=== PATIENT | female | born 1970 | race Caucasian/White ===

== ENCOUNTER 2021-03-20 20:34 | Emergency (ER) | payer SELFPAY ==
[~2021-03-20] VITALS: Ht 154.9 cm; Wt 77.3 kg
[2021-03-20] MEDS ORDERED: DOXY100C PO (21:00)
[2021-03-20] MEDS ORDERED: PRED20TA PO (21:00)
[2021-03-20] MEDS ORDERED: ALBU83IN NEB (21:00)
[2021-03-20] MEDS ORDERED: BENZ-18 PO (21:00)
[2021-03-20] MEDS ORDERED: FLUT1INH3 INH (21:00)
[2021-03-20 22:22] LABS: BASO % 0.2 % (0.0-1.0); HEMATOCRIT 41.8 % (36.0-47.0); HEMOGLOBIN 13.8 g/dl (12.0-15.5); LYMPH # 0.9 10^3/uL (1.5-5.0); MEAN CORPUSCULAR VOLUME 90.9 fl (80.0-96.0); MONO # 0.2 10^3/uL (0.0-0.8); MONO % 4.7 % (2.0-8.0); NEUTROPHILS # 3.9 10^3/uL (1.5-8.5); NEUTROPHILS % 76.9 % (36.0-66.0); WHITE BLOOD COUNT 5.1 10^3/uL (4.0-10.0)
[2021-03-20 22:44] LABS: ALBUMIN 3.5 GM/DL (3.2-5.2); ALT/SGPT 33 U/L (12-78); BILIRUBIN,DIRECT < 0.1 MG/DL (0.0-0.2); BILIRUBIN,TOTAL 0.4 MG/DL (0.2-1.0); BLOOD UREA NITROGEN 14 MG/DL (7-18); CALCIUM LEVEL 8.4 MG/DL (8.5-10.1); CARBON DIOXIDE LEVEL 22 MEQ/L (21-32); CHLORIDE LEVEL 99 MEQ/L (98-107); CK-MB VALUE MASS < 1.0 NG/ML (<3.6); CPK CREATINE PHOSPHOKINASE 196 U/L (26-192); CREATININE FOR GFR 0.78 MG/DL (0.55-1.30); GLOMERULAR FILTRATION RATE > 60.0 (>58); GLUCOSE, FASTING 87 MG/DL (70-100); MB/CK RELATIVE INDEX 0.51 (< OR =4); NT-PRO BNP 18 PG/ML (<125); POTASSIUM SERUM 4.5 MEQ/L (3.5-5.1); SODIUM LEVEL 134 MEQ/L (136-145); THYROID STIMULATING HORMONE 0.351 uIU/ML (0.358-3.740); TOTAL PROTEIN 7.1 GM/DL (6.4-8.2); TROPONIN I < 0.02 NG/ML (< 0.10)
--- NOTE | 2021-03-21 00:01 | REPVR ---
PROCEDURE INFORMATION: Exam: XR Chest Exam date and time: 03/20/2021 10:35 PM Age: 50 years old Clinical indication: Cough and dyspnea TECHNIQUE: Imaging protocol: XR of the chest. Views: 1 view. COMPARISON: No relevant prior studies available. FINDINGS: Lungs: There are subtle peripheral airspace opacities in the mid lung zones bilaterally. Pleural spaces: Unremarkable. No pleural effusion. No pneumothorax. Heart/Mediastinum: Unremarkable. No cardiomegaly. Bones/joints: There is mild levoscoliosis of the lower thoracic spine. Intraperitoneal space: There are surgical clips in the right upper quadrant of the abdomen. IMPRESSION: Subtle peripheral airspace opacities in the mid lung zones bilaterally, which may represent pneumonia. Electronically signed by: Tawanda Howard On 03/21/2021 00:00:37 AM
[2021-03-21 01:00] VITALS: BP 130/84
--- NOTE | 2021-03-21 06:06 | ECGEPIP ---
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
== END 2021-03-21 01:23 | disposition home or self-care (01) ==
LOC: M ED 20:34
DX: U07.1 COVID-19 (principal); J45.909 Unspecified asthma, uncomplicated; Z91.040 Latex allergy status; Z79.51 Long term (current) use of inhaled steroids; Z79.899 Other long term (current) drug therapy; Z88.8 Allergy status to other drugs, medicaments and biological substances

== ENCOUNTER 2021-03-21 00:18 | Outpatient (CLI) | payer SELFPAY ==
[~2021-03-21] VITALS: Ht 154.9 cm; Wt 76.5 kg
[~2021-03-21 00:18] MED LIST: ALBU83IN NEB; BENZ-18 PO; DOXY100C PO; FLUT1INH3 INH; PRED20TA PO
--- NOTE | 2021-03-21 00:19 | HPEPDOC ---
[facility] Medical History & Physical Date of Admission March 21, 2021 Date of Service: March 21, 2021 Attending Physician: CRISPIN OQUENDO MD History and Physical TTIME OF SERVICE: 1234am CHIEF COMPLAINT: dyspnea HISTORY OF PRESENT ILLNESS: This 50 yr old F presented w c/o dyspnea, cough, hea dache, and weakness for 1 week despite being started on doxycycline and presnidonse; she had previously tested neg for COVID but today repeat testing was positive. She denies feeling like her asthma is acting up. REVIEW OF SYSTEMS: 12-point review of systems negative except as listed in HPI PAST MEDICAL/ SURGICAL HISTORY: Asthma, Class 1 Obesity, Cholecystectomy, R knee repair ALLERGIES: Please see below. HOME MEDICATIONS: Please see below. PHYSICAL EXAMINATION: T 97.6 / HR 79 / RR 16 / BP 129/85/ O2 94% GENERAL APPEARANCE: well nourished / listless HEENT: EOMI CARDIOVASCULAR: RRR, NMRG LUNGS: CTAB on RA INTEGUMENT: not flushed or diaphoretic NEUROLOGICAL: speech not dysarthric PSYCHIATRIC: A&Ox 3 / able to understand and follow all commands LABORATORY DATA: CBC & CMP unremarkable except Na of 134, AST of 51, CK of 196, TSH of 0.351 IMAGING: Chest xray IMPRESSION: Subtle peripheral airspace opacities in the mid lung zones bilaterally, which may represent pneumonia. MICROBIOLOGY: COVID 19 + ASSESSMENT: is a 50 yr old F w Asthma & Class 1 Obesity who presented w c/o dyspnea, cough, headache, and weakness for 1 week and will receive MAB infusion for COVID 19., PLAN: 1 COVID 19 qCSI score is = 0 points = low risk Low Na and elevated AST are likely due to COVID Plan: MAB infusion order set 2 Low TSH likely 2/2 euthyroid sick syndrome Plan: f/u w PCP for repeat TFTs Dispo: home after infusion Home Medications Scheduled Doxycycline Hyclate (Doxycycline Hyclate) 100 Mg Capsule, 1 CAP PO BID Fluticasone Propion/Salmeterol (Fluticasone-Salmeterol 232-14) 1 Each Aer.pow.ba, 1 PUFF INH BID Prednisone (Prednisone) 20 Mg Tablet, 1 TAB PO DAILY Scheduled PRN Albuterol Sulf (Albuterol Sulfate) 2.5 Mg/3 Ml Vial.neb, 1 NEB NEB PRN PRN for DYSPNEA Benzonatate (Benzonatate) 100 Mg Capsule, 1 CAP PO PRN PRN for COUGH Allergies Coded Allergies: ceftriaxone (Verified Allergy, Severe, anaphylaxis., 03/20/21) anaphylaxis. Latex, Natural Rubber (Verified Allergy, Mild, skin peel off, 03/20/21) skin peel off A-FIB/CHADSVASC A-FIB History Current/History of A-Fib/PAF?: No Current PO Anticoag Therapy: No CRISPIN OQUENDO MD March 21, 2021 00:19
[2021-03-21] MEDS ORDERED: EPINEPHrine INJ 1 MG/ML 1ML AMP IM PRN (00:20)
[2021-03-21] MEDS ORDERED: ALBUTEROL SULFATE 2.5 MG/0.5 ML INH NEB SOLN INH PRN (00:20)
[2021-03-21] MEDS ORDERED: ALBUTEROL 90 MCG/ACT 8GM HFA INHALER INH PRN (00:20)
[2021-03-21] MEDS ORDERED: methylPREDNISolone 125MG 2ML VIAL IV PRN (00:20)
[2021-03-21] MEDS ORDERED: diphenhydrAMINE 50MG/ML VIAL (J1200) IV PRN (00:20)
[2021-03-21] MEDS ORDERED: NS 1,000 ML IV SCH (00:20)
[2021-03-21 01:25] VITALS: BP 113/77
[2021-03-21] MEDS ORDERED: BAMLANIVIMAB 700 MG, ETESEVIMAB 1,400 MG in NS 250 ML IV ONE (02:15)
[2021-03-21 03:07] VITALS: BP 120/74
[2021-03-21 03:30] VITALS: BP 117/69
[2021-03-21 04:00] VITALS: BP 123/81
[2021-03-21] MEDS ORDERED: methylPREDNISolone 125MG 2ML VIAL IV ONE (04:30)
[2021-03-21] MEDS ORDERED: ALBUTEROL 90 MCG/ACT 8GM HFA INHALER INH ONE (04:30)
[2021-03-21 05:07] VITALS: BP 115/74
== END 2021-03-21 05:50 | disposition home or self-care (01) ==
LOC: M OPCLI4 00:18 → M 4MAIN 01:25 → M OPCLI4 05:50
PROVIDERS: ATTEND Internal Medicine
DX: U07.1 COVID-19 (principal); Z91.040 Latex allergy status
CPT/HCPCS: 96375; J2930; M0239

== ENCOUNTER 2021-03-26 13:11 | Inpatient (IN) | payer SELFPAY ==
[~2021-03-26] VITALS: Ht 165.1 cm; Wt 96.9 kg
[2021-03-26 14:29] LABS: BASO % 0.1 % (0.0-1.0); EOS % 0.1 % (0.0-3.0); HEMATOCRIT 41.4 % (36.0-47.0); HEMOGLOBIN 13.7 g/dl (12.0-15.5); LYMPH # 0.7 10^3/uL (1.5-5.0); LYMPH % 5.4 % (24.0-44.0); MEAN CORPUSCULAR HEMOGLOBIN 30.2 pg (27.0-33.0); MEAN CORPUSCULAR HGB CONC 33.1 g/dl (32.0-36.5); MEAN CORPUSCULAR VOLUME 91.2 fl (80.0-96.0); MONO # 0.7 10^3/uL (0.0-0.8); MONO % 5.4 % (2.0-8.0); NEUTROPHILS # 10.9 10^3/uL (1.5-8.5); NEUTROPHILS % 88.2 % (36.0-66.0); PLATELET COUNT, AUTOMATED 341 10^3/uL (150-450); RED BLOOD COUNT 4.54 10^6/uL (4.00-5.40); WHITE BLOOD COUNT 12.4 10^3/uL (4.0-10.0)
[2021-03-26 14:40] LABS: INR 1.01; PROTHROMBIN TIME 13.5 SECONDS (12.5-14.3)
[2021-03-26 14:41] LABS: PARTIAL THROMBOPLASTIN TIME 24.6 SECONDS (24.2-38.5)
[2021-03-26 14:51] LABS: ALBUMIN 2.9 GM/DL (3.2-5.2); ALT/SGPT 30 U/L (12-78); BILIRUBIN,TOTAL 0.5 MG/DL (0.2-1.0); BLOOD UREA NITROGEN 17 MG/DL (7-18); C REACTIVE PROTEIN QUANTITATIV 4.95 MG/DL (0.00-0.30); CALCIUM LEVEL 8.7 MG/DL (8.5-10.1); CARBON DIOXIDE LEVEL 24 MEQ/L (21-32); CHLORIDE LEVEL 104 MEQ/L (98-107); CREATININE FOR GFR 0.75 MG/DL (0.55-1.30); FERRITIN 349 NG/ML (8-252); GLOMERULAR FILTRATION RATE > 60.0 (>58); GLUCOSE, FASTING 153 MG/DL (70-100); LDH LACTATE DEHYDROGENASE 480 U/L (84-246); POTASSIUM SERUM 4.9 MEQ/L (3.5-5.1); SODIUM LEVEL 135 MEQ/L (136-145); TOTAL PROTEIN 7.1 GM/DL (6.4-8.2)
[2021-03-26 14:53] LABS: HCG, SERUM QUALITATIVE NEGATIVE (NEGATIVE)
[2021-03-26 14:55] LABS: ERYTHROCYTE SEDIMENTATION RATE 58 mm/hr (0-20)
--- NOTE | 2021-03-26 15:33 | REP ---
INDICATION: covid. COMPARISON: Comparison chest x-ray March 20, 2021. TECHNIQUE: Portable upright AP chest radiograph. FINDINGS: A subtle infiltrate is again noted in the right upper lobe above the minor fissure. There is an infiltrate in the right lower lobe which has increased since the prior study. There is also increased density in the left lower lobe which is more prominent than on the March 20, 2021 study as well.. Heart is not enlarged. Pleural angles are sharp. No bony abnormality. IMPRESSION: Radiographically progressive bilateral patchy pneumonia.. <Electronically signed by Srikanth Diane > 03/26/21 [id number]
[2021-03-26] MEDS ORDERED: ISOVUE-370 76% 100ML VIAL As Ordered ONE (15:43)
--- NOTE | 2021-03-26 16:09 | REP ---
INDICATION: covid pneumonia, possible pulmonary embolism. COMPARISON: Comparison is made with today's chest x-ray.. TECHNIQUE: Contrast dose: 75 ML of Isovue [address] technique: Helical scanning is acquired and overlapping 1.5 mm and contiguous 3 mm axial images are reformatted. In addition, maximum intensity projection and multiplanar re-formation images are generated in sagittal and coronal imaging projections. FINDINGS: There is good opacification in the pulmonary arterial tree. There is no evidence of vessel cut off or filling defect to suggest pulmonary embolus. Homogeneous opacity is seen in the thoracic aorta. There is no evidence of aneurysm or dissection. Lung window settings demonstrate large areas of ground-glass alveolar infiltrates in the upper lobes and lower lobes. Much of each lower lobe is involved. Findings consistent with extensive patchy bilateral pneumonia. No pleural or pericardial effusion is seen. No hilar or mediastinal mass or adenopathy is observed. No extra thoracic mass or adenopathy is seen. In the upper abdomen, normal adrenal glands are observed. Post cholecystectomy clips are seen in the right upper quadrant. IMPRESSION: Extensive bilateral alveolar infiltrates consistent with bilateral pneumonia. No CT evidence of pulmonary embolus.. <Electronically signed by Srikanth Diane > 03/26/21 [id number]
[2021-03-26] MEDS ORDERED: MOXIFLOXACIN HCL 400 MG in IV 1 EA IV ONE (17:05)
[2021-03-26] MEDS ORDERED: dexameTHASONE 20MG/5ML VIAL (J1100 PER 1MG) IV ONE (17:05)
[2021-03-26] MEDS ORDERED: NS 1,000 ML IV SCH (17:40)
[2021-03-26 17:41] LABS: D-DIMER QUANT 371.15 ng/ml (<500)
--- NOTE | 2021-03-26 17:41 | HPEPDOC ---
[facility] Medical History & Physical Date of Admission March 26, 2021 Date of Service: March 26, 2021 History and Physical Chief complaint: Presented to the ER with complaints of SOB History of present illness: Patient is a 51 year old female with a PMHx of Asthma, COVID19 (Dx 03/20; s/p Monoclonal antibodies) who presented to the emergency room with complaints of shortness of breath. Patient has reported that prior to 03/20. Infusion of monoclonal antibodies. She has been experiencing a one week history of symptoms which she describes as shortness of breath, nonproductive cough, headache and weakness. Patient had seen her primary care provider who prescribed her prednisone and doxycycline. Despite that she had presented to the emergency room on the 03/20 and was given a monoclonal antibody infusion. After the infusion. Patient reported that she felt relatively well, however, has continued to experience nonproductive cough, shortness of breath, some expectoration was noted. Unable to describe sputum report some nausea without vomiting. Denies any abdominal pain, constipation. Reports her diarrhea has resolved. Her last bowel movement was today and reported normal. Patient reports that she is able to eat and denies any changes in her weight. She does report low-grade fevers at home of 99.9 and some chills. 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 Review of Systems: 10 point review of systems complete, all negative otherwise stated in HPI Physical exam: - Vitals: BP [121/69], HR [81], RR [18], Sat [94%NC2L], Temp [98.5F] - General: Lying in bed, No acute distress, Speaking in full sentences, AAOx3 - HEENT: NC, AT, PERRLA - CVS: RRR, +S1S2, - Murmurs / rubs / gallops - Lungs: Fair air entry bilaterally, No appreciable wheezing / rales / rhonchi - Abdomen: Soft, Non-distended, Non-tender - Extremities: No lower extremity edema, No calf tenderness - Neuro: No focal motor or sensory deficit - Skin: No visible rashes Labs: See below Imaging: CXR 03/26: Radiographically progressive bilateral patchy pneumonia. CTA chest 03/26: Extensive bilateral alveolar infiltrates consistent with bilateral pneumonia. No CT evidence of pulmonary embolus. EKG: See below Assessment and Plan: Acute hypoxic respiratory failure - likely 2/2 COVID19 pneumonia; possibly 2/2 superimposed bacterial infection - Patient presented to emergency room with complaint of shortness of breath - Upon arrival to ER, patient was on RA; however currently is on nasal cannula 2 L, maintaining saturations at 94% - Was recently diagnosed with COVID19 infection on 03/20 and has received monoc lonal antibodies - Has been reporting symptoms since 03/13; reported to have tested negative on that date - Residual emergency room with complaints of shortness of breath, nonproductive cough, low-grade fevers and chills - Leukocytosis, some elevation of inflammatory markers - Imaging noted above - Will check sputum cultures, blood cultures, pro-calcitonin and trend inflammatory markers - Will start Remdesivir / Dexamethasone / Antibiotics with Moxifloxacin (until procalcitonin results) - Continue with supplemental oxygen to maintain saturations greater than 90% - Will start Incentive spirometry / Acapella / Mucinex Leukocytosis - Neutrophil prominence - Patient has reported that she has continued to use of prednisone while outpatient - Will continue with antibiotics as stated above Lactic acidosis - Will start gentle IV fluid hydration Chronic Asthma - No evidence of exacerbation - c/w Inhaled therapy as ordered DVT prophylaxis - Will start Lovenox Vital Signs Vital Signs Date Time Temp Pulse Resp B/P (MAP) Pulse Ox O2 Delivery O2 Flow Rate FiO2 03/26/21 16:11 81 92 03/26/21 16:00 121/69 (86) 03/26/21 13:11 98.5 18 Room Air Laboratory Data Labs 24H Laboratory Tests 2 03/26/21 14:18: Procalcitonin <0.05 03/26/21 14:19: Immature Granulocyte % (Auto) 0.8, Neutrophils (%) (Auto) 88.2H, Lymphocytes (%) (Auto) 5.4L, Monocytes (%) (Auto) 5.4, Eosinophils (%) (Auto) 0.1, Basophils (%) (Auto) 0.1, Neutrophils # (Auto) 10.9H, Lymphocytes # (Auto) 0.7L, Monocytes # (Auto) 0.7, Eosinophils # (Auto) 0.0, Basophils # (Auto) 0.0, Nucleated Red Blood Cells % (auto) 0.0, Erythrocyte Sedimentation Rate 58H, Prothrombin Time 13.5, Prothromb Time International Ratio 1.01, Activated Partial Thromboplast Time 24.6L, Fibrinogen 572H, Anion Gap 7L, Glomerular Filtration Rate > 60.0, Calcium Level 8.7, Ferritin 349H, Total Bilirubin 0.5, Aspartate Amino Transf (AST/SGOT) 30, Alanine Aminotransferase (ALT/SGPT) 30, Alkaline Phosphatase 89, Lactate Dehydrogenase 480H, C-Reactive Protein, Quantitative 4.95H, Total Protein 7.1, Albumin 2.9L, Albumin/Globulin Ratio 0.7L, Human Chorionic Gonadotropin, Qual NEGATIVE 03/26/21 14:25: POC Lactate (Misc Panel) 2.23*H CBC/BMP Laboratory Tests 03/26/21 14:19 Home Medications Scheduled Doxycycline Hyclate (Doxycycline Hyclate) 100 Mg Capsule, 100 MG PO BID Fluticasone Propion/Salmeterol (Fluticasone-Salmeterol 232-14) 1 Each Aer.pow.ba, 1 PUFF INH BID Prednisone (Prednisone) 20 Mg Tablet, 20 MG PO DAILY Scheduled PRN Albuterol Sulf (Albuterol Sulfate) 2.5 Mg/3 Ml Vial.neb, 1 VIAL NEB Q4H PRN for SOB/WHEEZING Benzonatate (Benzonatate) 100 Mg Capsule, 200 MG PO TID PRN for COUGH Allergies Coded Allergies: ceftriaxone (Verified Allergy, Severe, anaphylaxis., 03/20/21) anaphylaxis. Latex, Natural Rubber (Verified Allergy, Mild, skin peel off, 03/20/21) skin peel off KI GANDHI MD March 26, 2021 17:41
[2021-03-26] MEDS ORDERED: ALBUTEROL 90 MCG/ACT 8GM HFA INHALER INH PRN (17:45)
[2021-03-26] MEDS ORDERED: BENZONATATE 100 MG CAP PO PRN (17:45)
[2021-03-26 17:53] LABS: MAGNESIUM LEVEL 1.8 MG/DL (1.8-2.4)
[2021-03-26] MEDS: ADVAIR HFA 230/21MCG INHALER INH SCH (20:00)
[2021-03-26] MEDS ORDERED: REMDESIVIR 200 MG in NS 250 ML IV ONE (20:00)
[2021-03-26] MEDS ORDERED: SODIUM CHLORIDE 0.9% INJ 10 ML SYR IV ONE (20:00)
[2021-03-26] MEDS ORDERED: ENOXAPARIN 40MG/0.4ML SYRINGE (J1650 PER 10MG) SC SCH (21:00)
[2021-03-26] MEDS: guaiFENesin ER 600 MG TAB PO SCH (21:31)
[2021-03-26 22:07] VITALS: BP 123/56
[2021-03-27] VITALS (9 sets, daily range): BP systolic 109–140; BP diastolic 67–85; O2SAT 91–95
[2021-03-27] MEDS: ACETAMINOPHEN 650MG ER TAB (TYLENOL ARTHRITIS) PO PRN ×2 (00:03→20:57)
[2021-03-27] MEDS: ADVAIR HFA 230/21MCG INHALER INH SCH ×2 (08:12→20:38)
[2021-03-27 08:32] LABS: BASO % 0.1 % (0.0-1.0); HEMATOCRIT 40.4 % (36.0-47.0); HEMOGLOBIN 13.3 g/dl (12.0-15.5); LYMPH # 0.8 10^3/uL (1.5-5.0); LYMPH % 8.4 % (24.0-44.0); MEAN CORPUSCULAR HEMOGLOBIN 30.2 pg (27.0-33.0); MEAN CORPUSCULAR HGB CONC 32.9 g/dl (32.0-36.5); MEAN CORPUSCULAR VOLUME 91.8 fl (80.0-96.0); MONO # 0.4 10^3/uL (0.0-0.8); MONO % 4.3 % (2.0-8.0); NEUTROPHILS # 8.4 10^3/uL (1.5-8.5); NEUTROPHILS % 86.4 % (36.0-66.0); PLATELET COUNT, AUTOMATED 379 10^3/uL (150-450); WHITE BLOOD COUNT 9.8 10^3/uL (4.0-10.0)
[2021-03-27] MEDS: ENOXAPARIN 40MG/0.4ML SYRINGE (J1650 PER 10MG) SC SCH (09:00)
[2021-03-27 09:16] LABS: ALBUMIN 2.8 GM/DL (3.2-5.2); ALT/SGPT 25 U/L (12-78); BILIRUBIN,DIRECT < 0.1 MG/DL (0.0-0.2); BILIRUBIN,TOTAL 0.4 MG/DL (0.2-1.0); BLOOD UREA NITROGEN 16 MG/DL (7-18); CALCIUM LEVEL 9.1 MG/DL (8.5-10.1); CARBON DIOXIDE LEVEL 23 MEQ/L (21-32); CHLORIDE LEVEL 108 MEQ/L (98-107); CREATININE FOR GFR 0.58 MG/DL (0.55-1.30); GLOMERULAR FILTRATION RATE > 60.0 (>58); GLUCOSE, FASTING 113 MG/DL (70-100); MAGNESIUM LEVEL 2.3 MG/DL (1.8-2.4); POTASSIUM SERUM 5.2 MEQ/L (3.5-5.1); SODIUM LEVEL 138 MEQ/L (136-145)
[2021-03-27] MEDS: guaiFENesin ER 600 MG TAB PO SCH ×2 (09:41→20:42)
[2021-03-27] MEDS: dexameTHASONE 4 MG/ML 1ML VIAL (J1100 PER 1MG) IV SCH (09:41)
--- NOTE | 2021-03-27 09:43 | IPNPDOC ---
Text Note Date of Service The patient was seen on 03/27/21. NOTE Subjective: Patient is a 51 year old female with a PMHx of Asthma, COVID19 (Dx 03/20; s/p Monoclonal antibodies) who presented to the emergency room with complaints of shortness of breath. Patient has reported that prior to 03/20 (infusion of monoclonal antibodies), she has been experiencing a one week history of symptoms which she describes as shortness of breath, nonproductive cough, headache and weakness. Patient had seen her primary care provider who prescribed her prednisone and doxycycline. Despite that she had presented to the emergency room on the 03/20 and was given a monoclonal antibody infusion. After the infusion, patient reported that she felt relatively well, however, has continued to experience nonproductive cough, shortness of breath, some expectoration was noted. Patient was admitted to hospital service for further evaluation and treatment. Patient was seen and examined at the bedside. Patient reports that her breathing is doing better this morning. Denies any nausea, vomiting, still reports a nonproductive cough. No significant shortness of breath. Denies any abdominal pain consultation, diarrhea, or urinary discomfort. Objective: Vitals (See below) General: Lying in bed, appears comfortable, AAOx3 HEENT: NC, AT CVS: +S1S2 Lungs: Fair air entry b/l, nose wheezing, rhonchi or rales Abdomen: Soft, nondistended, nontender Extremities: Lower extremities are without any edema, - Calf tenderness Imaging: CXR 03/26: Radiographically progressive bilateral patchy pneumonia. CTA chest 03/26: Extensive bilateral alveolar infiltrates consistent with bilateral pneumonia. No CT evidence of pulmonary embolus. Assessment and plan: Acute hypoxic respiratory failure - likely 2/2 COVID19 pneumonia; less likely 2/2 superimposed bacterial infection - Procedure the ER with complaints of shortness of breath and productive cough - Currently on nasal cannula oxygen at 1-2 L - Was recently diagnosed with COVID19 infection on 03/20 and has received monoclonal antibodies - Has been reporting symptoms since 03/13; reported to have tested negative on that date - s/p Leukocytosis; will trend inflammatory markers - Imaging noted above - PCT negative - Sputum cultures, blood cultures - pending - c/w Remdesivir / Dexamethasone (Day #2); will discontinue moxifloxacin - c/w Incentive spirometry / Acapella / Mucinex s/p Leukocytosis - Neutrophil prominence - Patient has reported that she has continued to use of prednisone while outpatient - Will continue with antibiotics as stated above Lactic acidosis - s/p gentle IV fluid hydration Chronic Asthma - No evidence of exacerbation - c/w Inhaled therapy as ordered DVT prophylaxis - c/w Lovenox Disposition: - Anticipate discharge home tomorrow VS,Fishbone, I+O VS, Fishbone, I+O Laboratory Tests 03/26/21 14:19 03/27/21 07:50 Vital Signs Date Time Temp Pulse Resp B/P (MAP) Pulse Ox O2 Delivery O2 Flow Rate FiO2 03/27/21 08:00 96.6 82 20 116/81 (93) 94 Nasal Cannula 1.0 I&O- Last 24 Hours up to 6 AM 03/27/21 06:00 Intake Total 570 ml Output Total 900 ml Balance -330 ml KI GANDHI MD March 27, 2021 09:43
[2021-03-27] MEDS ORDERED: MOXIFLOXACIN HCL 400 MG in IV 1 EA IV SCH (18:00)
[2021-03-27] MEDS ORDERED: SODIUM CHLORIDE 0.9% INJ 10 ML SYR IV SCH (20:00)
[2021-03-27] MEDS ORDERED: REMDESIVIR 100 MG in NS 250 ML IV SCH (20:00)
[2021-03-28 04:00] VITALS: BP 106/60
[2021-03-28 06:07] VITALS: O2SAT 94
[2021-03-28 07:48] LABS: HEMATOCRIT 36.7 % (36.0-47.0); HEMOGLOBIN 12.2 g/dl (12.0-15.5); MEAN CORPUSCULAR HEMOGLOBIN 29.9 pg (27.0-33.0); MEAN CORPUSCULAR HGB CONC 33.2 g/dl (32.0-36.5); RED BLOOD COUNT 4.08 10^6/uL (4.00-5.40); WHITE BLOOD COUNT 11.2 10^3/uL (4.0-10.0)
[2021-03-28] MEDS: ADVAIR HFA 230/21MCG INHALER INH SCH (07:48)
[2021-03-28 07:49] LABS: BASO % 0.1 % (0.0-1.0); EOS % 0.1 % (0.0-3.0); LYMPH # 1.3 10^3/uL (1.5-5.0); LYMPH % 11.4 % (24.0-44.0); MONO # 0.6 10^3/uL (0.0-0.8); MONO % 5.5 % (2.0-8.0); NEUTROPHILS # 9.2 10^3/uL (1.5-8.5); NEUTROPHILS % 81.9 % (36.0-66.0); PLATELET COUNT, AUTOMATED 464 10^3/uL (150-450)
[2021-03-28 08:02] LABS: INR 1.12; PROTHROMBIN TIME 14.7 SECONDS (12.5-14.3)
[2021-03-28 08:48] LABS: ALBUMIN 2.7 GM/DL (3.2-5.2); ALT/SGPT 20 U/L (12-78); BILIRUBIN,DIRECT 0.1 MG/DL (0.0-0.2); BILIRUBIN,TOTAL 0.3 MG/DL (0.2-1.0); BLOOD UREA NITROGEN 20 MG/DL (7-18); CARBON DIOXIDE LEVEL 22 MEQ/L (21-32); CHLORIDE LEVEL 108 MEQ/L (98-107); CPK CREATINE PHOSPHOKINASE 40 U/L (26-192); CREATININE FOR GFR 0.62 MG/DL (0.55-1.30); FERRITIN 307 NG/ML (8-252); GLOMERULAR FILTRATION RATE > 60.0 (>58); GLUCOSE, FASTING 110 MG/DL (70-100); LDH LACTATE DEHYDROGENASE 202 U/L (84-246); NT-PRO BNP 63 PG/ML (<125); POTASSIUM SERUM 4.3 MEQ/L (3.5-5.1); SODIUM LEVEL 139 MEQ/L (136-145); TOTAL PROTEIN 6.9 GM/DL (6.4-8.2); TROPONIN I < 0.02 NG/ML (< 0.10)
[2021-03-28] MEDS: ENOXAPARIN 40MG/0.4ML SYRINGE (J1650 PER 10MG) SC SCH (09:00)
[2021-03-28] MEDS: dexameTHASONE 4 MG/ML 1ML VIAL (J1100 PER 1MG) IV SCH (09:21)
[2021-03-28] MEDS: guaiFENesin ER 600 MG TAB PO SCH (09:21)
[2021-03-28 09:52] VITALS: BP 110/68
[2021-03-28] MEDS ORDERED: PRED10TA2 PO (10:20)
--- NOTE | 2021-03-28 13:00 | DSES ---
DISCHARGE SUMMARY DATE OF ADMISSION: 03/26/2021 DATE OF DISCHARGE: 03/28/2021 PRINCIPAL DIAGNOSES: 1. Coronavirus-19 pneumonia. 2. Acute hypoxic respiratory failure with oxygen saturation of 86% on room air with ambulation. 3. History of asthma. DISCHARGE MEDICATIONS: 1. Prednisone taper. 2. Albuterol q. 4 hourly. 3. Benzonatate 200 t.i.d. 4. Doxycycline 100 b.i.d. 5. Fluticasone salmeterol one puff b.i.d. HOSPITAL COURSE: This is a 51-year-old female with history of asthma and coronavirus positive 03/20 status post monoclonal antibodies, who presented to the ER with worsening shortness of breath for the past week, nonproductive cough, headache, and weakness. The patient was given prednisone and doxycycline with no improvement. Chest x-ray showed viral pneumonia. The patient was admitted to the COVID unit given IV remdesivir and Decadron with improvement. The patient had Acapella, Mucinex, and incentive spirometry and required 1-2 liters nasal cannula oxygen, but desaturated to 86% on room air with ambulation. With hydration, the patient's lactic acidosis resolved. She was continued on inhaled bronchodilators. The patient had symptomatic improvement. DISCHARGE PHYSICAL EXAMINATION: VITAL SIGNS: Temperature 96.5, pulse 88, respiratory rate 20, blood pressure 110/68, 93% on room air. GENERAL: Awake, alert, and oriented to person, place, and time. Answering questions appropriately without conversational dyspnea. HEENT: No JVD or thyromegaly. Moist mucous membranes. No cervical lymphadenopathy or stridor. LUNGS: Diminished, but clear to auscultation without wheezing or rales. HEART: S1, S2. Sinus rhythm. No murmurs, rubs, or gallops. ABDOMEN: Soft, nontender, and nondistended with positive bowel sounds. EXTREMITIES: No cyanosis, clubbing, or pitting edema. DISCHARGE LABORATORY DATA: White count 11.2, hemoglobin 12, hematocrit 36, platelet count 464,000. Sodium 139, potassium 4.3, chloride 108, bicarb 22, BUN 20, creatinine 0.62, glucose 110, magnesium 2. Procalcitonin less than 0.05. Liver function tests are within normal limits. IMAGING DATA: 03/26/2021 CT chest shows bilateral pneumonia and extensive bilateral alveolar infiltrates. No PE. Time spent on discharge 30 minutes. MTDD
[2021-03-28 16:09] LABS: MYCOPLASMA PNEUMONIAE IgG 432 U/mL (0-99); MYCOPLASMA PNEUMONIAE IgM <770 U/mL (0-769)
[2021-03-29 14:09] LABS: BODY FLUID CULTURE Not indicated. (.); LEGIONELLA ANTIGEN URINE Negative (Negative); ORGANISM ID Not indicated. (.); SPECIMEN SOURCE Urine (.); URINE STREP PNEUMONIAE ANTIGEN Negative (Negative)
== END 2021-03-28 15:57 | disposition home or self-care (01) | DRG 137 ==
LOC: M ED 13:11 → M ED INP 17:26 → ENRESERV 19:30 → M 4MAIN 22:08
PROVIDERS: ADMIT Internal Medicine; ATTEND General Practice
DX: U07.1 COVID-19 (principal); J96.01 Acute respiratory failure with hypoxia; J12.82 Pneumonia due to coronavirus disease 2019; E87.2 Acidosis; J45.909 Unspecified asthma, uncomplicated; Z79.899 Other long term (current) drug therapy; Z79.52 Long term (current) use of systemic steroids; Z91.040 Latex allergy status; Z88.8 Allergy status to other drugs, medicaments and biological substances

== ENCOUNTER → 2022-08-29 | Outpatient (CLI) | payer SELFPAY ==
[~2022-08-29] MED LIST changes: +ALBU2.5V10 NEB; -ALBU83IN NEB; -DOXY100C PO; +DOXY100C3 PO; +PRED10TA2 PO
== END ==
LOC: M WUC 11:21
PROVIDERS: ATTEND Student in an Organized Health Care Education/Training Program
DX: S62.606S Fracture of unspecified phalanx of right little finger, sequela (principal)

== ENCOUNTER → 2023-01-23 | Outpatient (CLI) | payer SELFPAY | LOC: M WUC 12:08 | PROVIDERS: ATTEND Nurse Practitioner Family | DX: M25.421 Effusion, right elbow (principal); S40.021A Contusion of right upper arm, initial encounter; M25.521 Pain in right elbow; X58.XXXA Exposure to other specified factors, initial encounter; Y92.9 Unspecified place or not applicable ==